=== PATIENT | female | born 1955 | race Hispanic/Latino ===

== ENCOUNTER 2016-11-26 15:51 | Inpatient (IN) | payer MEDICARE ==
--- NOTE | 2016-11-26 17:28 | Emergency Department Report ---
ED General Adult HPI - General Chief complaint: Hypoglycemia Stated complaint: HYPOGLYCEMIA Time Seen by Provider: 11/26/16 17:02 Source: patient, EMS Mode of arrival: Stretcher Limitations: No Limitations - History of Present Illness Initial comments: 61-year-old female fell and became disoriented prior to arrival. Accu-Chek was 27 as per EMS at the scene. Patient received D5 infusion improved to 86. Patient received food after arrival to the ED. Patient has a history and not insulin dependent diabetes but was off medications for diabetes 1 month due to improvement and glucose. Patient did not eat anything today and only had one sandwich yesterday due to decreased appetite. Patient has a left leg infection as been treated with Keflex 2 weeks. Patient thinks that the wound is improving with treatment. She denies fever, chills, nausea, vomiting, abdominal pain, or dysuria. Cough occasionally productive of brown sputum reported. Chronic orthopnea also reported. Patient is prescribed home oxygen but is noncompliant mostly times. PMD: Dr. Wiseman - Related Data Home Medications Medication Instructions Recorded Confirmed Last Taken Furosemide 10 mg PO DAILY 09/13/13 02/16/15 02/16/15 Gabapentin 600 mg PO BID 09/13/13 02/16/15 02/16/15 Lisinopril 5 mg PO DAILY 09/13/13 02/16/15 02/16/15 Omeprazole 20 mg PO DAILY 09/13/13 02/16/15 02/16/15 glipiZIDE [Glipizide] 5 mg PO BID 09/13/13 02/16/15 02/16/15 Previous Rx's Medication Instructions Recorded Last Taken Type Aspirin EC [Aspirin Enteric Coated 81 mg PO QDAY #30 tablet 02/25/15 Unknown Rx TAB] AtorvaSTATin [Lipitor] 40 mg PO DAILY #30 tablet 02/25/15 Unknown Rx Ferrous Sulfate [Feosol 325 MG tab] 325 mg PO QDAY #30 tablet 02/25/15 Unknown Rx Furosemide [Lasix TAB] 40 mg PO 0600,1800 #60 tablet 02/25/15 Unknown Rx Gabapentin [Neurontin] 600 mg PO BID #60 capsule 02/25/15 Unknown Rx HYDROcodone/APAP 5-325 [[place] 1 each PO Q6HR PRN #30 tablet 02/25/15 Unknown Rx 5-325 mg TAB] Lisinopril [Zestril TAB] 5 mg PO QDAY #30 tablet 02/25/15 Unknown Rx Potassium Chloride [K-Dur] 10 meq PO QDAY #30 tablet 02/25/15 Unknown Rx Potassium Chloride [Klor-Con 10] 10 meq PO DAILY #30 tablet.er 02/25/15 Unknown Rx Sertraline [Zoloft] 100 mg PO QDAY #30 tablet 02/25/15 Unknown Rx Oxycodone HCl/Acetaminophen 1 each PO Q6HR PRN #20 tablet 07/12/15 Unknown Rx [Percocet 7.5/325 mg] Sulfamethoxazole/Trimethoprim 1 each PO BID #20 tablet 07/12/15 Unknown Rx [Bactrim DS TAB] Allergies Allergy/AdvReac Type Severity Reaction Status Date / Time morphine Allergy Severe Anaphylaxis Verified 09/25/13 15:51 ED Review of Systems ROS: Stated complaint: HYPOGLYCEMIA Other details as noted in HPI Comment: All other systems reviewed and negative Other: Constitutional: No fevers chills Eyes: No eye pain visual changes ENT: No ear pain or throat pain Neck: Denies pain Respiratory: As per HPI Cardiovascular: Denies chest pain, palpitations, syncope GI: Denies abdominal pain, nausea, vomiting, diarrhea : Denies dysuria Musculoskeletal: Denies back pain Skin: As per HPI Neurologic: Denies headache, numbness, weakness Psychiatric: Denies suicidal ideation, hallucinations ED Past Medical Hx - Past Medical History Hx Hypertension: Yes (on Lisinopril) Hx Heart Attack/AMI: No Hx Congestive Heart Failure: Yes Hx Diabetes: Yes Hx Deep Vein Thrombosis: (Unknown) Hx GERD: Yes (2005) Hx Renal Disease: (hx of acute renal injury 07/2011 (resolved)) Hx Arthritis: Yes (RIGHT KNEE DJD;BACK LOWER ) Hx Seizures: No Hx Asthma: No Hx COPD: (denies ) - Surgical History Hx Pacemaker: No Hx Internal Defibrillator: No Hx Cholecystectomy: Yes Hx Appendectomy: Yes Additional Surgical History: Total knee replacement 2013 - Social History Smoking Status: Current Every Day Smoker Substance Use Type: None - Medications Home Medications: Home Medications Medication Instructions Recorded Confirmed Last Taken Type Furosemide 10 mg PO DAILY 09/13/13 02/16/15 02/16/15 History Gabapentin 600 mg PO BID 09/13/13 02/16/15 02/16/15 History Lisinopril 5 mg PO DAILY 09/13/13 02/16/15 02/16/15 History Omeprazole 20 mg PO DAILY 09/13/13 02/16/15 02/16/15 History glipiZIDE [Glipizide] 5 mg PO BID 09/13/13 02/16/15 02/16/15 History Aspirin EC [Aspirin Enteric Coated 81 mg PO QDAY #30 tablet 02/25/15 Unknown Rx TAB] AtorvaSTATin [Lipitor] 40 mg PO DAILY #30 tablet 02/25/15 Unknown Rx Ferrous Sulfate [Feosol 325 MG tab] 325 mg PO QDAY #30 tablet 02/25/15 Unknown Rx Furosemide [Lasix TAB] 40 mg PO 0600,1800 #60 tablet 02/25/15 Unknown Rx Gabapentin [Neurontin] 600 mg PO BID #60 capsule 02/25/15 Unknown Rx HYDROcodone/APAP 5-325 [[place] 1 each PO Q6HR PRN #30 tablet 02/25/15 Unknown Rx 5-325 mg TAB] Lisinopril [Zestril TAB] 5 mg PO QDAY #30 tablet 02/25/15 Unknown Rx Potassium Chloride [K-Dur] 10 meq PO QDAY #30 tablet 02/25/15 Unknown Rx Potassium Chloride [Klor-Con 10] 10 meq PO DAILY #30 tablet.er 02/25/15 Unknown Rx Sertraline [Zoloft] 100 mg PO QDAY #30 tablet 02/25/15 Unknown Rx Oxycodone HCl/Acetaminophen 1 each PO Q6HR PRN #20 tablet 07/12/15 Unknown Rx [Percocet 7.5/325 mg] Sulfamethoxazole/Trimethoprim 1 each PO BID #20 tablet 07/12/15 Unknown Rx [Bactrim DS TAB] ED Physical Exam - General Limitations: No Limitations - Other Other exam information: General: No limitations, patient is alert in no acute distress Head exam: Atraumatic, normocephalic Eyes exam: Normal appearance ENT: Moist mucous membrane, normal oropharynx Neck exam: Normal inspection, full range of motion Respiratory exam: Clear to auscultation bilateral, no wheezes, rales, crackles Cardiovascular: Normal rate and rhythm, normal heart sounds Abdomen: Soft, nondistended, and nontender, with normal bowel sounds, no rebound, or guarding Extremity: Full range of motion, left lower anterior leg cellulitis with erythema and warmth. 3 small ulcerations size 1 cm, 2 siblings, and 0.5 cm with yellow exudate at the base. Mild tenderness to palpation. 2+ DP pulses bilaterally Back: Normal Inspection, full range of motion, no tenderness Neurologic: Alert, oriented x3, cranial nerves intact, no motor or sensory deficit Psychiatric: normal affect, normal mood Skin: Bruising to her arms from fall ED Course Vital Signs 11/26/16 11/26/16 11/26/16 16:40 18:19 18:39 Temperature 97.8 F Pulse Rate 75 80 Respiratory 20 19 Rate Blood Pressure 133/40 Blood Pressure 104/43 [Right] O2 Sat by Pulse 94 94 93 Oximetry 11/26/16 11/26/16 11/26/16 18:46 19:00 19:02 Temperature 98.2 F Pulse Rate 81 80 84 Respiratory 13 18 17 Rate Blood Pressure 145/30 Blood Pressure 145/30 [Right] O2 Sat by Pulse 92 93 94 Oximetry 11/26/16 11/26/16 19:16 19:30 Temperature Pulse Rate 88 Respiratory 16 13 Rate Blood Pressure 145/30 145/30 Blood Pressure [Right] O2 Sat by Pulse 94 96 Oximetry - Reevaluation(s) Reevaluation #1: 11/26/16 18:27 Received quality consultant from lab that glucoses is in the 30s. Patient is alert. Drinking or issues currently. D50 ordered. Labs also reveal acute renal insufficiency is likely secondary to dehydration with associated hyperkalemia. The following meds wereordered, Kayexalate, normal saline, sodium bicarbonate, and albuterol nebulizer tx. Calcium was not provided due to hypercalcemia. not ordered secondary to dehydration and renal sufficiency. Glucose ordered secondary to recurrent hypoglycemia. ED Medical Decision Making - Lab Data Result diagrams: 11/26/16 17:31 11/26/16 17:31 Lab Results 11/26/16 11/26/16 11/26/16 Range/Units 16:47 17:31 17:31 WBC 10.7 (4.5-11.0) K/mm3 RBC 3.69 (3.65-5.03) M/mm3 Hgb 8.2 L (10.1-14.3) gm/dl Hct 27.0 L (30.3-42.9) % MCV 73 L (79-97) fl MCH 22 L (28-32) pg MCHC 30 (30-34) % RDW 21.9 H (13.2-15.2) % Plt Count 283 (140-440) K/mm3 Lymph % (Auto) 7.0 L (13.4-35.0) % [place] % (Auto) 7.7 H (0.0-7.3) % Eos % (Auto) 0.3 (0.0-4.3) % Baso % (Auto) 0.8 (0.0-1.8) % Lymph # 0.7 L (1.2-5.4) K/mm3 [place] # 0.8 (0.0-0.8) K/mm3 Eos # 0.0 (0.0-0.4) K/mm3 Baso # 0.1 (0.0-0.1) K/mm3 Seg Neutrophils % 84.2 H (40.0-70.0) % Seg Neutrophils # 9.0 H (1.8-7.7) K/mm3 Sodium 135 L (137-145) mmol/L Potassium 5.9 H (3.6-5.0) mmol/L Chloride 97.1 L (98-107) mmol/L Carbon Dioxide 23 (22-30) mmol/L Anion Gap 21 mmol/L BUN 50 H (7-17) mg/dL Creatinine 1.9 H (0.7-1.2) mg/dL Estimated GFR 27 ml/min BUN/Creatinine Ratio 26 % Glucose 38 L* (65-100) mg/dL POC Glucose 58 L (70-105) Calcium 12.2 H* (8.4-10.2) mg/dL 11/26/16 Range/Units 18:28 WBC (4.5-11.0) K/mm3 RBC (3.65-5.03) M/mm3 Hgb (10.1-14.3) gm/dl Hct (30.3-42.9) % MCV (79-97) fl MCH (28-32) pg MCHC (30-34) % RDW (13.2-15.2) % Plt Count (140-440) K/mm3 Lymph % (Auto) (13.4-35.0) % [place] % (Auto) (0.0-7.3) % Eos % (Auto) (0.0-4.3) % Baso % (Auto) (0.0-1.8) % Lymph # (1.2-5.4) K/mm3 [place] # (0.0-0.8) K/mm3 Eos # (0.0-0.4) K/mm3 Baso # (0.0-0.1) K/mm3 Seg Neutrophils % (40.0-70.0) % Seg Neutrophils # (1.8-7.7) K/mm3 Sodium (137-145) mmol/L Potassium (3.6-5.0) mmol/L Chloride (98-107) mmol/L Carbon Dioxide (22-30) mmol/L Anion Gap mmol/L BUN (7-17) mg/dL Creatinine (0.7-1.2) mg/dL Estimated GFR ml/min BUN/Creatinine Ratio % Glucose (65-100) mg/dL POC Glucose < 40 L (70-105) Calcium (8.4-10.2) mg/dL - EKG Data -: EKG Interpreted by Me (sinus, anteroseptal infarct (old), no stemi, no peak t wave) - EKG Data When compared to previous EKG there are: changes noted - Radiology Data Radiology results: report reviewed (chest xray: + granuloma in the right lower lobe) - Medical Decision Making Patient requires admission to the hospital for recurrent hypoglycemia with associated acute renal sufficiency and hyperkalemia/hypercalcemia. Her PMD Dr. Wiseman will admit patient. ESR and UA pending at disposition. - Differential Diagnosis sepsis, infection, adrenal insufficiency, pneumonia, cellulitis, osteomyeli Critical Care Time: No Critical care attestation.: If time is entered above; I have spent that time in minutes in the direct care of this critically ill patient, excluding procedure time. ED Disposition Clinical Impression: Acute kidney failure, Hypoglycemia, Left leg cellulitis, Ulcer of leg, chronic , left, Hyperkalemia, Hypercalcemia, Anemia Disposition: OP ADMIT IP TO THIS HOSP Is pt being admited?: Yes Condition: Stable Time of Disposition: 18:34 (obiekwe/hosp)
[2016-11-26 18:12] LABS: Basophils % (Auto) 0.8 % (0.0-1.8); Eosinophils % (Auto) 0.3 % (0.0-4.3); Hemoglobin 8.2 gm/dl (10.1-14.3); Mean Corpuscular HGB Conc 30 % (30-34); Mean Corpuscular Volume 73 fl (79-97); Platelet Count 283 K/mm3 (140-440); Red Blood Count 3.69 M/mm3 (3.65-5.03); White Blood Count 10.7 K/mm3 (4.5-11.0)
[2016-11-26 18:14] LABS: Chloride 97.1 mmol/L (98-107); Potassium 5.9 mmol/L (3.6-5.0)
[2016-11-26 18:18] LABS: Mean Corpuscular Hemoglobin 22 pg (28-32); Red Cell Distribution Width 21.9 % (13.2-15.2)
[2016-11-26] MEDS ORDERED: KIONEX PO ONE (18:22)
[2016-11-26] MEDS ORDERED: NACL 0.9% 1000 ML 1,000 ML IV ONE (18:22)
[2016-11-26] MEDS ORDERED: D50W (25GM) Syringe IV ONE (18:23)
[2016-11-26 18:25] LABS: Calcium 12.2 mg/dL (8.4-10.2)
[2016-11-26] MEDS ORDERED: PROVENTIL IH ONE (18:27)
[2016-11-26] MEDS ORDERED: SODIUM BICARBONATE IV ONE (18:27)
[2016-11-26 18:44] LABS: Erythrocyte Sedimentation Rate 70 mm/Hr (0-20)
--- NOTE | 2016-11-26 19:34 | XRay Report ---
FINAL REPORT PROCEDURE: Chest. TECHNIQUE: AP and lateral views. HISTORY: Cough. COMPARISON: No prior studies are available for comparison. FINDINGS: The heart size is borderline. There is calcification in the thoracic aorta. There is a small nodular opacity in the lower half of the right lung on the frontal view. I believe this is located posteriorly in the lower lobe. This may represent a small granuloma. The lungs are otherwise clear. There are no pleural effusions. There are neurostimulator electrode leads in the thoracic spinal canal. The regional skeleton appears intact. IMPRESSION: Probable granuloma in the right lower lobe. No definite signs of acute disease.
--- NOTE | 2016-11-26 20:37 | History and Physical Report ---
History of Present Illness Date of examination: 11/26/16 Date of admission: 11/26/16 Chief complaint: Hypoglycemia, syncope, acute on chronic renal failure History of present illness: Patient is a 61-year-old lady who was a history of diabetes mellitus, congestive heart failure, chronic kidney disease, and ARTHRITIS of the knees and was taking all for her oral hypoglycemic medications for the past 1 month as her blood sugar had been running low. She became altered in the mental status today and fell. The granddaughter who was at home with pt called EMS. Blood sugar was found to be 27 on arrival of EMS personnel. Patient stated that she did not hit her head on the floor after the fall. Denies any loss of consciousness. Given D50 was given IV and brought to the ED of [facility]. Patient reported that she has not been able to eat loss of appetite for the past 3 days, because of loss of appetite. No slurred speech, lateralized weakness or localized tenderness. She denies any cough or fever, endorses occasional chest tightness that started after breathing treatment. Patient was recently seen in our office with complaints of redness and pain in both lower extremities. Was commenced on Keflex for cellulitis of the extremities. Denies any fever, nausea vomiting or abdominal pain. Emergency department he was found to be 50 with a treadmill 1.9. Potassium was 5.9 and calcium was 12.2. Chest x-ray shows a possible granuloma in the right lower lung. Patient was given normal saline IV and Kayexalate. Admission was requested Medications and Allergies Allergies Allergy/AdvReac Type Severity Reaction Status Date / Time morphine Allergy Severe Anaphylaxis Verified 09/25/13 15:51 Home Medications Medication Instructions Recorded Confirmed Last Taken Type Furosemide 10 mg PO DAILY 09/13/13 02/16/15 02/16/15 History Gabapentin 600 mg PO BID 09/13/13 02/16/15 02/16/15 History Lisinopril 5 mg PO DAILY 09/13/13 02/16/15 02/16/15 History Omeprazole 20 mg PO DAILY 09/13/13 02/16/15 02/16/15 History glipiZIDE [Glipizide] 5 mg PO BID 09/13/13 02/16/15 02/16/15 History Aspirin EC [Aspirin Enteric Coated 81 mg PO QDAY #30 tablet 02/25/15 Unknown Rx TAB] AtorvaSTATin [Lipitor] 40 mg PO DAILY #30 tablet 02/25/15 Unknown Rx Ferrous Sulfate [Feosol 325 MG tab] 325 mg PO QDAY #30 tablet 02/25/15 Unknown Rx Furosemide [Lasix TAB] 40 mg PO 0600,1800 #60 tablet 02/25/15 Unknown Rx Gabapentin [Neurontin] 600 mg PO BID #60 capsule 02/25/15 Unknown Rx HYDROcodone/APAP 5-325 [[place] 1 each PO Q6HR PRN #30 tablet 02/25/15 Unknown Rx 5-325 mg TAB] Lisinopril [Zestril TAB] 5 mg PO QDAY #30 tablet 02/25/15 Unknown Rx Potassium Chloride [K-Dur] 10 meq PO QDAY #30 tablet 02/25/15 Unknown Rx Potassium Chloride [Klor-Con 10] 10 meq PO DAILY #30 tablet.er 02/25/15 Unknown Rx Sertraline [Zoloft] 100 mg PO QDAY #30 tablet 02/25/15 Unknown Rx Oxycodone HCl/Acetaminophen 1 each PO Q6HR PRN #20 tablet 07/12/15 Unknown Rx [Percocet 7.5/325 mg] Sulfamethoxazole/Trimethoprim 1 each PO BID #20 tablet 07/12/15 Unknown Rx [Bactrim DS TAB] Active Meds: Review of systems Constitutional: Well Nouridhed and Well developed. Head: NC/ AT Eyes: Denies any visual impairments. No discharge from the eyes Nose: Denies any rhinorrhea or epistaxis Throats: Denies any post nasal drainage. Ears: Denies any hearing deficits Cardiovascular system: Has shortness of breath, orthopnea, paroxysmal nocturnal dyspnea, or palpitation. Respiratory system: Denies any cough, difficulty breathing, wheezing, pleuritic chest pain, Gastrointestinal system: Denies any abdominal pain, nausea vomiting, hematemesis or melena. Neurological system: Denies any headache, slurred speech, facial droop, lateralizing weakness Genitalia system: Denies any dysuria, urinary frequency or urgency, urethral discharge Skin: No rashes, hyperpigmented spots. Hematological: Denies any cervical tenderness hemorrhages or petechia. Immunological: Denies any multiple septic spots, Lymphatic: Denies any generalized lymphadenopathy. Endocrine: Denies any polyuria, polydipsia, polyphagia. No heat or cold intolerance. Musculoskeletal system: No joint pain or swelling. Psych: No visual, tactile, auditory or hallucination Exam - Constitutional Vitals: Temp Pulse Resp BP Pulse Ox 98.2 F 88 13 145/30 96 11/26/16 19:02 11/26/16 19:16 11/26/16 19:30 11/26/16 19:30 11/26/16 19:30 General appearance: Present: no acute distress, well-nourished - EENT Eyes: Present: PERRL - Neck Neck: Present: supple, normal ROM - Respiratory Respiratory effort: normal Respiratory: bilateral: diminished - Cardiovascular Heart Sounds: Present: S1 & S2. Absent: rub, click - Extremities Extremities: pulses symmetrical, No edema Peripheral Pulses: within normal limits - Abdominal General gastrointestinal: Present: soft, non-tender, non-distended, normal bowel sounds Female genitourinary: Present: normal - Integumentary Integumentary: Present: clear, warm, dry - Musculoskeletal Musculoskeletal: gait normal, strength equal bilaterally - Psychiatric Psychiatric: appropriate mood/affect, intact judgment & insight - Neurologic Neurologic: CNII-XII intact, moves all extremities Results - Labs CBC & Chem 7: 11/26/16 17:31 11/26/16 17:31 Labs: Abnormal lab results 11/26/16 11/26/16 11/26/16 Range/Units 16:47 17:31 17:31 Hgb 8.2 L (10.1-14.3) gm/dl Hct 27.0 L (30.3-42.9) % MCV 73 L (79-97) fl MCH 22 L (28-32) pg RDW 21.9 H (13.2-15.2) % Lymph % (Auto) 7.0 L (13.4-35.0) % [place] % (Auto) 7.7 H (0.0-7.3) % Lymph # 0.7 L (1.2-5.4) K/mm3 Seg Neutrophils % 84.2 H (40.0-70.0) % Seg Neutrophils # 9.0 H (1.8-7.7) K/mm3 Sodium 135 L (137-145) mmol/L Potassium 5.9 H (3.6-5.0) mmol/L Chloride 97.1 L (98-107) mmol/L BUN 50 H (7-17) mg/dL Creatinine 1.9 H (0.7-1.2) mg/dL Glucose 38 L* (65-100) mg/dL POC Glucose 58 L (70-105) Calcium 12.2 H* (8.4-10.2) mg/dL 11/26/16 11/26/16 Range/Units 18:28 19:11 Hgb (10.1-14.3) gm/dl Hct (30.3-42.9) % MCV (79-97) fl MCH (28-32) pg RDW (13.2-15.2) % Lymph % (Auto) (13.4-35.0) % [place] % (Auto) (0.0-7.3) % Lymph # (1.2-5.4) K/mm3 Seg Neutrophils % (40.0-70.0) % Seg Neutrophils # (1.8-7.7) K/mm3 Sodium (137-145) mmol/L Potassium (3.6-5.0) mmol/L Chloride (98-107) mmol/L BUN (7-17) mg/dL Creatinine (0.7-1.2) mg/dL Glucose (65-100) mg/dL POC Glucose < 40 L 121 H (70-105) Calcium (8.4-10.2) mg/dL Assessment and Plan - Hypoglycemia: We'll continue to hold all oral hypoglycemic agents, conversational D5 half normal - Acute on Chronic renal failure: Most likely is related to poor oral intake and diuresis Obtain urinalysis, renal ultrasound, avoid nephrotoxic agents, gentle hydration. - Hyperkalemia: Commence patient on Kayexalate. Face does given in the emergencydepartment, hold lisinopril, and potassium level - Hypercalcemia: We will obtain SPEP and UPEP. Continue normal saline IV. - Chest tightness: We'll obtain serial cardiac enzymes, continue bronchodilators - History of CHF: Continue home medications. -Granuloma on the right lower lobe: Obtain, belongs with contrast when Renakl fxn is improved. - Anemia of chronic disease: We'll obtain TIBC and B12, folic acid serum iron and ferritin - Tobacco use disorder: Tobacco cessation counseling - DVT prophylaxis with Lasix GI prophylaxis Pepcid
[2016-11-26] MEDS ORDERED: NON-FORMULARY (Oxycodone Hcl/Acetaminophen [Percocet 7.5/325 Mg] 1 EACH) PO PRN (21:04)
[2016-11-26 21:10] LABS: Bilirubin,Urine NEG (Negative); Blood,Urine NEG (Negative); Ketones,Urine NEG (Negative); Leukocyte Esterase,Urine TR (Negative); Mucus,Urine FEW /HPF; Nitrite,Urine NEG (Negative); Protein,Urine <15 mg/dL mg/dL (Negative)
[2016-11-26] MEDS ORDERED: D50W (25GM) Syringe IV PRN (21:17)
[2016-11-26 21:48] LABS: Creatine Kinase MB 3.7 ng/mL (0.0-4.0)
[2016-11-26 21:49] LABS: Albumin 3.9 g/dL (3.9-5); Albumin/Globulin Ratio 1.4 %; Bilirubin,Total 0.3 mg/dL (0.1-1.2); Calcium 11.9 mg/dL (8.4-10.2); Potassium 5.8 mmol/L (3.6-5.0); Total Protein 6.7 g/dL (6.3-8.2)
[2016-11-26] MEDS ORDERED: MAXIPIME/NS 1 GM/100 ML 1 GM/100 ML BAG IV ONE (22:00)
--- NOTE | 2016-11-26 22:27 | Cat Scan Report ---
FINAL REPORT PROCEDURE: CT head without contrast. TECHNIQUE: Computerized tomography of the head was performed without contrast material. HISTORY: Patient fell, head injury. COMPARISON: CT head 02/17/2015. FINDINGS: The ventricles are normal in size. The huerta matter and white matter appear normal. There are no mass lesions. There is no intracranial hemorrhage. The calvarium appears intact. The mastoid air cells and paranasal sinuses are clear as far as visualized. IMPRESSION: Normal study.
[2016-11-27 03:53] LABS: Creatine Kinase MB 2.9 ng/mL (0.0-4.0)
[2016-11-27] MEDS: ZESTRIL PO SCH (10:07)
[2016-11-27] MEDS: HALFPRIN EC PO SCH (10:07)
[2016-11-27] MEDS: ZOLOFT PO SCH (10:08)
[2016-11-27] MEDS: FEOSOL PO SCH (10:08)
--- NOTE | 2016-11-27 12:06 | Progress Note ---
Assessment and Plan - Hypoglycemia: We'll continue to hold all oral hypoglycemic agents, continue with D5 half normal - Acute on Chronic renal failure: Most likely is related to poor oral intake and diuresis. Continue with gentle IV hydration. F/u Us result. Avoid nephrotoxic agents, - Cellulitis of both lower extrimities: Continue with Cefepin - Hyperkalemia: Commence patient on Kayexalate. First dose given in the department. Hold lisinopril, and check potassium level - Hypercalcemia: F/u SPEP and UPEP. Continue normal saline IV. - Chest tightness: We'll obtain serial cardiac enzymes, continue bronchodilators - History of CHF: ECHO of 04/11/14 showed EF of 55-60% with normal LV function. Continue home medications. - Granuloma on the right lower lobe: Obtain CT chest with contrast when renal fxn is improved. - Anemia of chronic disease: We'll obtain TIBC and B12, folic acid serum iron and ferritin - Tobacco use disorder: Tobacco cessation counseling - DVT prophylaxis with Lasix GI prophylaxis Pepcid Subjective Date of service: 11/27/16 Principal diagnosis: acute on chronic kidney failure Interval history: No new complaint. No dizziness Objective - Constitutional Vitals: Vital Signs - 12hr 11/27/16 11/27/16 11/27/16 00:24 04:41 04:52 Temperature 98.8 F 122.0 F H 97.4 F L Pulse Rate 81 79 Respiratory 20 17 23 Rate Blood Pressure 140/49 78/21 128/34 Blood Pressure [Right] O2 Sat by Pulse 83 L 78 L Oximetry 11/27/16 11/27/16 11/27/16 08:00 08:09 10:00 Temperature 98.4 F Pulse Rate 65 73 Respiratory 20 Rate Blood Pressure Blood Pressure 126/37 [Right] O2 Sat by Pulse 97 96 95 Oximetry 11/27/16 10:07 Temperature Pulse Rate 65 Respiratory Rate Blood Pressure 126/37 Blood Pressure [Right] O2 Sat by Pulse Oximetry General appearance: Present: no acute distress, well-nourished - EENT Eyes: PERRL, EOM intact Ears: bilateral: normal - Neck Neck: supple, normal ROM - Respiratory Respiratory effort: normal Respiratory: bilateral: CTA - Cardiovascular Rhythm: regular Heart Sounds: Present: S1 & S2. Absent: gallop, rub Extremities: pulses intact, No edema, normal color, Full ROM - Gastrointestinal General gastrointestinal: Present: soft, non-tender, non-distended, normal bowel sounds - Integumentary Integumentary: clear, warm, dry - Musculoskeletal Musculoskeletal: 1, strength equal bilaterally - Neurologic Neurologic: moves all extremities - Psychiatric Psychiatric: memory intact, appropriate mood/affect, intact judgment & insight - Labs CBC & Chem 7: 11/26/16 17:31 11/26/16 21:11 Labs: Abnormal lab results 11/26/16 11/26/16 11/26/16 Range/Units 21:11 21:18 22:47 Potassium 5.8 H (3.6-5.0) mmol/L BUN 48 H (7-17) mg/dL Creatinine 1.8 H (0.7-1.2) mg/dL Glucose 130 H (65-100) mg/dL POC Glucose 165 H (70-105) Calcium 11.9 H (8.4-10.2) mg/dL CK-MB (CK-2) Rel Index 4.1 H (0-4) Triglycerides 150 H (2-149) mg/dL LDL Cholesterol Direct 49 L (50-130) mg/dL HDL Cholesterol 23 L (40-59) mg/dL 11/27/16 Range/Units 02:57 Potassium (3.6-5.0) mmol/L BUN (7-17) mg/dL Creatinine (0.7-1.2) mg/dL Glucose (65-100) mg/dL POC Glucose (70-105) Calcium (8.4-10.2) mg/dL CK-MB (CK-2) Rel Index 4.3 H (0-4) Triglycerides (2-149) mg/dL LDL Cholesterol Direct (50-130) mg/dL HDL Cholesterol (40-59) mg/dL
[2016-11-27] MEDS: KIONEX PO SCH (13:04)
[2016-11-27] MEDS: D5/0.45NS 2,000 ML IV SCH (13:04)
[2016-11-27 15:02] LABS: Iron 62 ug/dL (37-170); Total Iron Binding Capacity 368 mcg/dL (250-450)
[2016-11-27] MEDS: PERCOCET 5/325 PO PRN (16:08)
[2016-11-27 18:32] LABS: Basophils % (Auto) 1.1 % (0.0-1.8); Eosinophils % (Auto) 0.8 % (0.0-4.3); Hematocrit 21.4 % (30.3-42.9); Hemoglobin 6.3 gm/dl (10.1-14.3); Mean Corpuscular HGB Conc 29 % (30-34); Mean Corpuscular Volume 74 fl (79-97); Platelet Count 219 K/mm3 (140-440); Red Blood Count 2.92 M/mm3 (3.65-5.03); White Blood Count 8.5 K/mm3 (4.5-11.0)
[2016-11-27 19:02] LABS: Mean Corpuscular Hemoglobin 22 pg (28-32); Red Cell Distribution Width 21.4 % (13.2-15.2)
[2016-11-27 21:47] LABS: Albumin 3.5 g/dL (3.9-5); Albumin/Globulin Ratio 1.1 %; Bilirubin,Total 0.2 mg/dL (0.1-1.2); Calcium 9.5 mg/dL (8.4-10.2); Chloride 100.3 mmol/L (98-107); Potassium 5.6 mmol/L (3.6-5.0); Total Protein 6.6 g/dL (6.3-8.2)
[2016-11-28] MEDS: PERCOCET 5/325 PO PRN ×3 (00:27→23:30)
[2016-11-28] MEDS: D5/0.45NS 2,000 ML IV SCH (05:43)
--- NOTE | 2016-11-28 08:31 | Progress Note ---
Assessment and Plan - Hypoglycemia: corrected - Acute on Chronic renal failure: Most likely is related to poor oral intake and diuresis. Hold diuretic Continue with gentle IV hydration. F/u Us result. Avoid nephrotoxic agents, - Cellulitis of both lower extrimities: Continue with Cefepin - Hyperkalemia: Commence patient on Kayexalate. First dose given in the department. Hold lisinopril, and check potassium level - Hypercalcemia: Corrected. F/u SPEP and UPEP. Continue normal saline IV. - Chest tightness: Cardiac enzynes are normal . - History of CHF: ECHO of 04/11/14 showed EF of 55-60% with normal LV function. Continue home medications. - Granuloma on the right lower lobe: Obtain CT chest with contrast when renal fxn is improved. - Anemia of chronic disease: Hg 6.3. TIBC and B12, folic acid serum iron and ferritin were normal. Pt has history fo bone maroow suppression. will Xfuse - Tobacco use disorder: Tobacco cessation counseling done. - DVT prophylaxis with Lasix GI prophylaxis Pepcid Subjective Date of service: 11/28/16 Principal diagnosis: acute on chronic kidney failure Interval history: Pt seen and examined. No over night event reported to me. No dizziness Objective - Constitutional Vitals: Vital Signs - 12hr 11/27/16 11/27/16 11/28/16 22:00 23:14 03:49 Temperature 98.6 F 98.6 F Pulse Rate 76 76 Respiratory 20 20 Rate Blood Pressure 123/33 101/27 O2 Sat by Pulse 96 94 96 Oximetry General appearance: Present: no acute distress, well-nourished - EENT Eyes: PERRL, EOM intact Ears: bilateral: normal - Neck Neck: supple, normal ROM - Respiratory Respiratory effort: normal Respiratory: bilateral: CTA - Cardiovascular Rhythm: regular Heart Sounds: Present: S1 & S2. Absent: gallop, rub Extremities: pulses intact, No edema, normal color, Full ROM - Gastrointestinal General gastrointestinal: Present: soft, non-tender, non-distended, normal bowel sounds - Integumentary Integumentary: clear, warm, dry - Musculoskeletal Musculoskeletal: 1, strength equal bilaterally - Neurologic Neurologic: moves all extremities - Psychiatric Psychiatric: memory intact, appropriate mood/affect, intact judgment & insight - Labs CBC & Chem 7: 11/27/16 18:09 11/27/16 14:13 Labs: Abnormal lab results 11/27/16 11/27/16 11/27/16 Range/Units 14:13 18:09 22:09 RBC 2.92 L (3.65-5.03) M/mm3 Hgb 6.3 L (10.1-14.3) gm/dl Hct 21.4 L (30.3-42.9) % MCV 74 L (79-97) fl MCH 22 L (28-32) pg MCHC 29 L (30-34) % RDW 21.4 H (13.2-15.2) % Lymph % (Auto) 5.9 L (13.4-35.0) % [place] % (Auto) 7.8 H (0.0-7.3) % Lymph # 0.5 L (1.2-5.4) K/mm3 Seg Neutrophils % 84.4 H (40.0-70.0) % Potassium 5.6 H (3.6-5.0) mmol/L BUN 48 H (7-17) mg/dL Creatinine 1.9 H (0.7-1.2) mg/dL Glucose 195 H (65-100) mg/dL POC Glucose 157 H (70-105) Albumin 3.5 L (3.9-5) g/dL Urine Creatinine (0.1-20.0) mg/dL 11/28/16 Range/Units 01:50 RBC (3.65-5.03) M/mm3 Hgb (10.1-14.3) gm/dl Hct (30.3-42.9) % MCV (79-97) fl MCH (28-32) pg MCHC (30-34) % RDW (13.2-15.2) % Lymph % (Auto) (13.4-35.0) % [place] % (Auto) (0.0-7.3) % Lymph # (1.2-5.4) K/mm3 Seg Neutrophils % (40.0-70.0) % Potassium (3.6-5.0) mmol/L BUN (7-17) mg/dL Creatinine (0.7-1.2) mg/dL Glucose (65-100) mg/dL POC Glucose (70-105) Albumin (3.9-5) g/dL Urine Creatinine 91.0 H (0.1-20.0) mg/dL
[2016-11-28] MEDS ORDERED: NACL 0.9% 500 ML 500 ML IV ONE (08:35)
[2016-11-28] MEDS ORDERED: LASIX PO ONE (09:00)
[2016-11-28] MEDS: FEOSOL PO SCH (10:39)
[2016-11-28] MEDS: ZOLOFT PO SCH (10:40)
[2016-11-28] MEDS: HALFPRIN EC PO SCH (10:40)
[2016-11-28] MEDS: ZESTRIL PO SCH (10:40)
[2016-11-28] MEDS: KIONEX PO SCH (10:41)
[2016-11-28] MEDS ORDERED: NACL 0.9% 500 ML 500 ML IV SCH (16:00)
[2016-11-29 02:57] LABS: Basophils % (Auto) 1.3 % (0.0-1.8); Eosinophils % (Auto) 1.9 % (0.0-4.3); Hematocrit 24.9 % (30.3-42.9); Hemoglobin 7.7 gm/dl (10.1-14.3); Mean Corpuscular HGB Conc 31 % (30-34); Mean Corpuscular Hemoglobin 23 pg (28-32); Mean Corpuscular Volume 75 fl (79-97); Platelet Count 191 K/mm3 (140-440); Red Blood Count 3.31 M/mm3 (3.65-5.03); White Blood Count 9.2 K/mm3 (4.5-11.0)
[2016-11-29 03:14] LABS: Albumin 3.7 g/dL (3.9-5); Albumin/Globulin Ratio 1.1 %; Bilirubin,Total 0.4 mg/dL (0.1-1.2); Calcium 8.5 mg/dL (8.4-10.2); Chloride 98.5 mmol/L (98-107); Potassium 4.4 mmol/L (3.6-5.0)
[2016-11-29 03:16] LABS: Albumin 3.5 g/dL (3.9-5); Bilirubin,Total 0.4 mg/dL (0.1-1.2); Calcium 8.5 mg/dL (8.4-10.2); Chloride 99.8 mmol/L (98-107); Potassium 4.4 mmol/L (3.6-5.0); Total Protein 6.9 g/dL (6.3-8.2)
[2016-11-29 05:07] VITALS: BP 124/37
[2016-11-29] MEDS: PERCOCET 5/325 PO PRN (08:32)
[2016-11-29] MEDS: ZESTRIL PO SCH (10:35)
[2016-11-29] MEDS: ZOLOFT PO SCH (10:36)
[2016-11-29] MEDS: HALFPRIN EC PO SCH (10:36)
[2016-11-29] MEDS: FEOSOL PO SCH (10:36)
[2016-11-29] MEDS: KIONEX PO SCH (10:36)
--- NOTE | 2016-11-29 15:21 | Discharge Summary ---
Providers - Providers Date of Admission: 11/26/16 20:55 Date of discharge: 11/29/16 Attending physician: GERTRUDE CASTRO 11/27/16 10:31 Consult to Wound/ET Nurse [CONS] Routine Reason For Exam: LLE diabetic ulcer Primary care physician: [facility] Hospital[facility] Reason for admission: Acute on chronic renal failure Condition: Stable Pertinent studies: CT scan of the head was normal. Chest x-ray shows granuloma in the right lower lung base Procedures: None Hospital course: Patient is a 62-year-old lady who has a history of chronic anemia and diabetes mellitus controlled on oral hypoglycemic been advised to discontinue glipizide many months ago, presented to the emergency Department on account of dizziness and persistent hypoglycemia. Patient had dizzy episodes and alteration in her mental status while at home. She fell. However stated that she didn't hit head on the floor. EMS was called in. Blood sugar was found to be in the 30s. D50 was given and patient was brought in by his department. Blood pressure was in the 60s. Patient was more lost in the emergency department. CT scan of the brain was unremarkable. Extremities and D50. Found to have acute renal injury, hypercalcemia, hyperkalemia and anemia. Patient was commenced on D5 half normal saline. Blood sugar was persistently elevated to 130s. Hypocalcemia resolved. SPEP was ordered as well as UPEP. Hypercalcemia corrected. Hyperkalemia corrected. Hemoglobin was normal at 6.3. Anemia workup showed normal iron and ferritin level. Patient has a history of myeloma suppression. Two units of blood transfused. Hemoglobin improved to 8.1. Fatigue resolved. Patient was discharged and advised not to take any oral hypoglycemic agents. He was to follow up with me in 3-5 days. Patient with a history of smoking half a pack of cigarette daily for 40 years was advised to quit smoking. Granuloma under right lung to work up on Outpatient with CT scan of the lung Disposition: DC-01 TO HOME OR SELFCARE Core Measure Documentation - Palliative Care Palliative Care/ Comfort Measures: Not Applicable - Core Measures Any of the following diagnoses?: none Exam - Constitutional Vitals: Temp Pulse Resp BP Pulse Ox 97.9 F 79 20 124/37 98 11/29/16 04:14 11/29/16 04:14 11/29/16 08:32 11/29/16 04:14 11/29/16 10:00 General appearance: Present: no acute distress, well-nourished - EENT Eyes: Present: PERRL - Neck Neck: Present: supple, normal ROM - Respiratory Respiratory effort: normal Respiratory: bilateral: CTA - Cardiovascular Heart Sounds: Present: S1 & S2. Absent: rub, click - Extremities Extremities: pulses symmetrical, No edema Peripheral Pulses: within normal limits - Abdominal General gastrointestinal: Present: soft, non-tender, non-distended, normal bowel sounds Female genitourinary: Present: normal - Integumentary Integumentary: Present: clear, warm, dry - Musculoskeletal Musculoskeletal: gait normal, strength equal bilaterally - Psychiatric Psychiatric: appropriate mood/affect, intact judgment & insight - Neurologic Neurologic: CNII-XII intact, moves all extremities Plan Activity: other Weight Bearing Status: Non-Weight Bearing Diet: low fat Follow up with: PRIMARY CARE,MD [Primary Care Provider] - 7 Days Prescriptions: Aspirin EC [Aspirin Enteric Coated TAB] 81 mg PO QDAY #30 tablet Ferrous Sulfate [Feosol 325 MG tab] 325 mg PO QDAY #30 tablet Gabapentin [Neurontin] 600 mg PO BID #60 capsule Lisinopril [Zestril TAB] 5 mg PO DAILY #50 tablet oxyCODONE /ACETAMINOPHEN [Percocet 5/325 mg] 1.5 tab PO Q4H PRN #45 tablet PRN Reason: Pain, Moderate (4-6) Sertraline [Zoloft] 100 mg PO QDAY #30 tablet
== END 2016-11-29 17:03 | disposition home or self-care (01) | DRG 683 ==
LOC: ED 15:51 → 4A 20:55
PROVIDERS: ADMIT Family Medicine; ATTEND Family Medicine
PROC: 30233N1 Transfusion of Nonautologous Red Blood Cells into Peripheral Vein, Percutaneous Approach (ICD-10-PCS; principal; 2016-11-28)
DX: N17.9 Acute kidney failure, unspecified (principal); L03.116 Cellulitis of left lower limb; I13.0 Hypertensive heart and chronic kidney disease with heart failure and stage 1 through stage 4 chronic kidney disease, or unspecified chronic kidney disease; L03.115 Cellulitis of right lower limb; L97.929 Non-pressure chronic ulcer of unspecified part of left lower leg with unspecified severity; E11.649 Type 2 diabetes mellitus with hypoglycemia without coma; R07.9 Chest pain, unspecified; E83.52 Hypercalcemia; E87.5 Hyperkalemia; J84.10 Pulmonary fibrosis, unspecified; Z88.5 Allergy status to narcotic agent; K21.9 Gastro-esophageal reflux disease without esophagitis; Z96.659 Presence of unspecified artificial knee joint; F17.200 Nicotine dependence, unspecified, uncomplicated; Z79.82 Long term (current) use of aspirin; E11.22 Type 2 diabetes mellitus with diabetic chronic kidney disease; N18.9 Chronic kidney disease, unspecified; I50.9 Heart failure, unspecified; D63.8 Anemia in other chronic diseases classified elsewhere; Z71.6 Tobacco abuse counseling; Z79.84 Long term (current) use of oral hypoglycemic drugs
CPT/HCPCS: 36415; 70450; 71020; 80048; 80053; 80061; 81001; 82043; 82550; 82553; 82607; 82728; 82962; 83036; 83550; 84165; 84166; 84484; 85025; 85652; 86850; 86900; 86901; 86920; 93005; 93010; 94760; A9270-GY; J0692; J7030; J7040; P9016